=== PATIENT | male | born 1970 | race Caucasian/White ===

== ENCOUNTER 2019-07-08 08:06 | Outpatient (CLI) | payer MEDICAID, SELFPAY ==
--- NOTE | 2019-07-08 08:11 | ECG_ITS ---
NAME OF STUDY: LEXISCAN SESTAMIBI STRESS TEST INDICATION: Chest Pain, LEXISCAN STRESS TEST ORDERING PHYSICIAN: Khalif CLINICAL INFORMATION: Chest pain INTERPRETATION: 1. The patient was brought to the laboratory where Lexiscan was infused over 20 seconds. The resting blood pressure was 131/91. Maximum blood pressure was 150/98. The resting heart rate was 62 beats per minute. The maximum heart rate is 78 beats per minute. 2. The baseline electrocardiogram reveals sinus rhythm and is essentially a normal tracing 3. With Lexiscan infusion, there were no ST segment changes to suggest ischemia. 4. The patient experienced no symptoms or arrhythmias during the examination. CONCLUSION: 1. Unremarkable Lexiscan infusion. 2. Nuclear imaging to follow. Electronically Signed On 07-08-2019 10:47:58 HOME CARE RN by Suraj Pike M.D. [email or web address]
--- NOTE | 2019-07-08 08:12 | NMCV_ITS ---
NM MIBI/MIBI Stress/Rest [id number] Yosef Holland Age: 49 Gender: M : 1970 Exam Date: 07/08/2019 09:07 Ordering Phys: Raffi Cuadra Technologist: HERMAN Dutta Exam Location: [facility] Indications: Chest Pain STRESS TEST Please see separate stress test report in [facility] for full findings IMAGE PROTOCOL Rest/Stress 1 Radiopharmaceutical Dose (mCi) Administration Site Administered by Rest: Tc-99m 10.1 IV HERMAN Dutta Sestamibi Stress:Tc-99m 29.7 IV HERMAN Dutta Sestamibi Rest: 08-Jul-2019 60 Discovery 630 Stress: 08-Jul-2019 60 Discovery 630 Images obtained in supine and prone position. SPECT RESULTS Technical Quality: Good Raw Data Analysis: Normal Image Corrections: No attenuation or motion correction applied Summed Stress Score: 0 Summed Rest Score: 3 Summed Difference Score: 0 PERFUSION FINDINGS SPECT images demonstrate homogeneous tracer distribution throughout the myocardium. FUNCTIONAL RESULTS (calculated via Gated SPECT) Stress Image LV EF (%): 78 Stress EDV (mL):94 TID: 0.79 Stress ESV (mL):21 Rest Image LV EF (%): 78 FUNCTIONAL FINDINGS: There is normal left ventricular systolic function. IMPRESSIONS Myocardial perfusion imaging is normal and low probability for obstructive coronary artery disease. Tereso Padilla MD (Electronically Signed) Final Date: 08 July 2019 13:15 S
[2019-07-08 08:30] VITALS: BMI 29.0
[2019-07-08] MEDS: regadenoson 0.4 Mg/5 ml Syringe IVP (09:51)
[2019-07-08 10:05] VITALS: BP 127/84; PULSE 76
== END 2019-07-08 08:07 | disposition home or self-care (01) ==
PROVIDERS: Family Provider Family Medicine; PCP Family Medicine; Visit Provider Family Medicine
DX: R07.9 Chest pain, unspecified (principal); R06.09 Other forms of dyspnea
CPT/HCPCS: 78452; 93017; A9500; J2785

== ENCOUNTER → 2022-03-05 09:51 | Outpatient (BNVA) | payer MEDICAID, SELFPAY | PROVIDERS: Family Provider Family Medicine; PCP Family Medicine; Visit Provider Nurse Practitioner | DX: I10 Essential (primary) hypertension (principal); R06.00 Dyspnea, unspecified | CPT/HCPCS: 80053; 80061; 84443; 85025 ==

== ENCOUNTER 2022-03-22 13:10 | Outpatient (CLI) | payer MEDICAID, SELFPAY ==
--- NOTE | 2022-03-22 13:45 | USCV_ITS ---
Yosef Holland Age: 52 Gender: M : 1970 Exam Date: 03/22/2022 13:41 Ordering Phys: Sonya Gastelum GYROSCOPE TECHNICIAN Technologist: Angle Gómez Exam Location: [facility] [place] Indication: dyspnea, unspecified BP: 158 / 98 HR: 55 Rhythm: Sinus Technical Quality: Fair MEASUREMENTS (Male / Female) Normal Values 2D ECHO LV Diastolic Diameter PLAX 4.1 cm 4.2 - 5.9 / 3.9 - 5.3 cm LV Systolic Diameter PLAX 2.4 cm IVS Diastolic Thickness 1.5 cm 0.6 - 1.0 / 0.6 - 0.9 cm IVS Systolic Thickness 1.6 cm LVPW Diastolic Thickness 0.7 cm 0.6 - 1.0 / 0.6 - 0.9 cm LVPW Systolic Thickness 1.9 cm LVOT Diameter 2.0 cm LV Ejection Fraction 2D Teich 73.5 % LV Ejection Fraction MOD 2C 67.2 % LV Ejection Fraction 2C AL 68.5 % LA Diameter 1.9 cm LA Width 1.7 cm LA Height 3.9 cm RA Width 3.0 cm RA Height 4.6 cm Aorta at Sinotubular Diameter 2.4 cm IVC Diameter 1.3 cm M-MODE MV E Point Septal Separation 0.6 cm DOPPLER AV Peak Velocity 158.0 cm/s LVOT Peak Velocity 131.0 cm/s AV Area Cont Eq vti 2.7 cm squared AV Area Cont Eq pk 2.6 cm squared MV Peak Velocity 78.0 cm/s MV Area PHT 2.5 cm squared Mitral E to A Ratio 1.0 MV E' Velocity 39.5 cm/s Mitral E to MV E' Ratio 5.6 Mitral E to LV E' Lateral Ratio 5.2 Mitral E to LV E' Septal Ratio 6.0 TR Peak Velocity 92.0 cm/s TR Peak Gradient 3.4 mmHg Right Atrial Pressure 3.0 mmHg Pulmonary Artery Systolic Pressu 6.4 mmHg PV Peak Velocity 103.0 cm/s RV Acceleration Time 0.1 s RV Ejection Time 0.3 s RV AcT/ET 0.5 FINDINGS Left Ventricle Normal left ventricular size and systolic function, EF 71 %. No regional wall motion abnormalities. Right Ventricle The right ventricle is normal in size and function. Right Atrium The right atrium is normal in size. Left Atrium The left atrium is normal in size. Mitral Valve No gross abnormalities noted Aortic Valve No gross abnormalities noted Tricuspid Valve Trace tricuspid valve regurgitation. Estimated pulmonary artery peak systolic pressure within normal limits Pulmonic Valve No gross abnormalities noted Pericardium No pericardial effusion. Aorta Normal aortic annulus size. IVC Normal inferior vena cava. CONCLUSIONS Normal left ventricular size and systolic function, EF 71 %. No regional wall motion abnormalities. Trace tricuspid valve regurgitation. Estimated pulmonary artery peak systolic pressure within normal limits. No significant valve abnormalities. Normal cardiac chamber sizes. There is no pericardial effusion. There are no intracardiac masses. No similar previous studies are available for comparison Dr Syed Jay MD [facility] (Electronically Signed) Final Date: 23 March 2022 15:13 S
== END 2022-03-22 13:11 | disposition home or self-care (01) ==
LOC: RAD 13:10
PROVIDERS: Visit Provider Nurse Practitioner
DX: R06.00 Dyspnea, unspecified (principal); I07.1 Rheumatic tricuspid insufficiency
CPT/HCPCS: 93306

== ENCOUNTER → 2023-11-13 09:20 | Outpatient (BNVA) | payer MEDICAID, SELFPAY | PROVIDERS: PCP Nurse Practitioner Family; Referring Provider Nurse Practitioner Family; Visit Provider Physician Assistant | DX: M17.9 Osteoarthritis of knee, unspecified (principal) | CPT/HCPCS: 73560; 73565; 99203 ==

== ENCOUNTER 2023-11-17 13:17 | Outpatient (CLI) | payer MEDICAID, SELFPAY ==
[2023-11-17] MEDS: iohexol 350 mg/mL 100 mL Btl PO (13:49)
--- NOTE | 2023-11-17 14:30 | CT_ITS ---
WS: [id number] CT ABDOMEN AND PELVIS WITH AND WITHOUT CONTRAST HISTORY: R10.9 - Unspecified abdominal pain TECHNIQUE: Unenhanced 5 mm axial imaging first performed through the abdomen. Post contrast imaging t hrough the abdomen and pelvis. Oral contrast has been provided. Sagittal and coronal reformats are s ubmitted. All CT scans at [facility] use at least one of these dose optimization techniques: automated exposure control; mA and/or kV adjustment per patient size (includes targeted exams where d ose is matched to clinical indication); or iterative reconstruction. CONTRAST: Omnipaque 350; 95 mL IV. DLP: 1019.21 mGy.cm COMPARISON: None available. Lung bases are clear. Normal size heart. Small amount of oral contrast in the distal esophagus. Sharda l liver. Normal portal vein. Gallbladder is slightly contracted without adjacent inflammation. Normal spleen. Normal pancreas. No pancreatic duct dilatation. No adjacent inflammation. No adrenal mass. N o renal obstruction. No calcifications are identified. There are a few very tiny areas of decreased a ttenuation in the RIGHT kidney which are too small to characterize. Mild atherosclerosis aorta. Stomach is normally distended with oral contrast. No outlet obstruction. No small bowel dilatation. A ppendix is normal. Mild constipation. Mild diverticular disease. No acute diverticulitis. No free fluid or adenopathy. Negative urinary bladder. No destructive bone lesions. CT/CT abdomen pelvis wo/w [id number] IMPRESSION: 1. No renal obstruction or calcification. 2. Minimal diverticular disease without acute diverticulitis. 3. No adenopathy or ascites. 4. No GI tract obstruction. 5. No acute abdominal or pelvic abnormalities.
[2023-11-17] MEDS: iohexol 300 mg/mL 100 mL Btl IV (14:46)
== END 2023-11-17 13:18 | disposition home or self-care (01) ==
LOC: RAD 13:17
PROVIDERS: PCP Nurse Practitioner Family; Visit Provider Nurse Practitioner Family
DX: K57.90 Diverticulosis of intestine, part unspecified, without perforation or abscess without bleeding (principal); R10.9 Unspecified abdominal pain
CPT/HCPCS: 74178; Q9967

== ENCOUNTER → 2024-04-01 10:47 | Outpatient (BNVA) | payer MEDICAID, SELFPAY | PROVIDERS: PCP Nurse Practitioner Family; Visit Provider Physician Assistant | DX: M17.0 Bilateral primary osteoarthritis of knee | CPT/HCPCS: 20610; 99213; J3301 ==

== ENCOUNTER → 2024-04-07 15:37 | Outpatient (BNVA) | payer MEDICAID, SELFPAY | PROVIDERS: PCP Nurse Practitioner Family; Visit Provider Podiatrist Foot & Ankle Surgery | DX: M25.572 Pain in left ankle and joints of left foot (principal); M95.8 Other specified acquired deformities of musculoskeletal system | CPT/HCPCS: 73610; 99203 ==

== ENCOUNTER 2024-04-14 10:03 | Outpatient (CLI) | payer MEDICAID, SELFPAY ==
--- NOTE | 2024-04-14 10:15 | MRR_ITS ---
PROCEDURE INFORMATION: Exam: MR Left Lower Extremity Joint Without Contrast; Ankle Exam date and time: 04/14/2024 10:18 AM Age: 54 years old Clinical indication: Patient HX: Chronic left ankle pain with HX of FX 2011; Additional info: Osteochondral defect of ankle TECHNIQUE: Imaging protocol: Magnetic resonance imaging of the left lower extremity without contrast. Exam focused on the ankle. COMPARISON: CR XR ankle LT min 3V* [id number] 04/07/2024 3:44 PM FINDINGS: Bones/joints: No acute fracture is seen. No bone contusion is seen. No osteochondral defect is identified. Small ankle and subtalar joint effusions. Small calcaneal spur is present. LIGAMENTS: Distal tibiofibular syndesmosis: There is an old healed fracture of the distal fibula above the level syndesmosis. Anterior talofibular ligament: Unremarkable. No tear. Posterior talofibular ligament: Unremarkable. No tear. Calcaneofibular ligament: Unremarkable. No tear. Deltoid ligament complex: Unremarkable. No tear. TENDONS: Flexor tendons of foot: Unremarkable as visualized. Tibialis posterior tendon: Unremarkable as visualized. Peroneal tendons: Unremarkable as visualized. Extensor tendons of foot: Unremarkable as visualized. Tibialis anterior tendon: Unremarkable as visualized. Achilles tendon: There is minimal edema at the Achilles myotendinous junction. Correlate clinical information regarding minimal strain or partial tear. Tarsal canal (Sinus tarsi): Unremarkable. Normal signal of the fat. Tarsal tunnel: Unremarkable. Soft tissues: No mass. Plantar fascia: Plantar fascia is unremarkable. MR/MR ankle LT wo con* [id number] IMPRESSION: 1. No acute fracture or dislocation. 2. Small ankle and subtalar joint effusions. 3. Minimal edema at the Achilles myotendinous junction. Correlate clinical information regarding minimal strain or partial tear.
== END 2024-04-14 10:04 | disposition home or self-care (01) ==
LOC: RAD 10:04
PROVIDERS: PCP Nurse Practitioner Family; Visit Provider Podiatrist Foot & Ankle Surgery
DX: M95.8 Other specified acquired deformities of musculoskeletal system (principal)
CPT/HCPCS: 73721

== ENCOUNTER → 2024-06-01 08:55 | Outpatient (BNVA) | payer MEDICAID, SELFPAY | PROVIDERS: PCP Nurse Practitioner Family; Visit Provider Nurse Practitioner Family | DX: Z13.6 Encounter for screening for cardiovascular disorders (principal); E55.9 Vitamin D deficiency, unspecified; I10 Essential (primary) hypertension; Z79.899 Other long term (current) drug therapy | CPT/HCPCS: 80053; 80061; 81003; 82306; 83036; 84443; 85025; G0103 ==

== ENCOUNTER → 2024-07-06 14:43 | Outpatient (BNVA) | payer MEDICAID, SELFPAY | PROVIDERS: PCP Nurse Practitioner Family; Visit Provider Physician Assistant | DX: M17.0 Bilateral primary osteoarthritis of knee (principal) | CPT/HCPCS: 20610; 99213; J3301 ==

== ENCOUNTER → 2024-07-14 07:57 | Outpatient (BNVA) | payer MEDICAID, SELFPAY | PROVIDERS: PCP Nurse Practitioner Family; Visit Provider Podiatrist Foot & Ankle Surgery | DX: M95.8 Other specified acquired deformities of musculoskeletal system (principal) | CPT/HCPCS: 99213 ==

== ENCOUNTER → 2024-08-02 11:31 | Outpatient (BNVA) | payer MEDICAID, SELFPAY | PROVIDERS: PCP Nurse Practitioner Family; Visit Provider Family Medicine | DX: Z01.818 Encounter for other preprocedural examination (principal) | CPT/HCPCS: 80053; 81000; 83036; 85025 ==

== ENCOUNTER → 2024-10-06 13:05 | Outpatient (BNVA) | payer MEDICAID, SELFPAY | PROVIDERS: PCP Nurse Practitioner Family; Visit Provider Physician Assistant | DX: M17.0 Bilateral primary osteoarthritis of knee (principal) | CPT/HCPCS: 20610; 99213; J3301; J9999 ==

== ENCOUNTER → 2024-11-24 11:22 | Outpatient (BNVA) | payer MEDICAID, SELFPAY | PROVIDERS: PCP Nurse Practitioner Family; Visit Provider Podiatrist Foot & Ankle Surgery | DX: Z01.818 Encounter for other preprocedural examination (principal); M95.8 Other specified acquired deformities of musculoskeletal system | CPT/HCPCS: 99214 ==

== ENCOUNTER → 2024-12-01 13:19 | Outpatient (BNVA) | payer MEDICAID, SELFPAY | PROVIDERS: PCP Nurse Practitioner Family; Visit Provider Physician Assistant | DX: M17.0 Bilateral primary osteoarthritis of knee (principal) | CPT/HCPCS: 99213 ==

== ENCOUNTER → 2024-12-07 09:35 | Outpatient (BNVA) | payer MEDICAID, SELFPAY | PROVIDERS: PCP Nurse Practitioner Family; Visit Provider Family Medicine | DX: Z01.818 Encounter for other preprocedural examination (principal) | CPT/HCPCS: 80048; 81000; 85025 ==

== ENCOUNTER 2024-12-14 09:21 | Outpatient (CLI) | payer MEDICAID, SELFPAY ==
--- NOTE | 2024-12-14 09:30 | MR_ITS ---
WS: [id number] MRI LEFT KNEE HISTORY: meniscus tear of left knee COMPARISON: Prior radiograph 11/13/2023 Anterior cruciate ligament: Intact. Posterior cruciate ligament: Intact. Medial collateral ligament: Intact. Posterior lateral corner structures: Intact. Medial menisci: Intact. Normal signal, size and shape. Lateral meniscus: Intact. Normal signal, size and shape. Extensor mechanism: Distal quadriceps tendon and patellar tendons are intact. Fluid and soft tissue: Very small suprapatellar joint effusion. No Frank's cyst. Osseous and articular structures: Patellofemoral compartment: Mild narrowing of the patellofemoral joint space. There are very small subchondral cystic lesions in the medial patellar facet. Short segment full-thickness cartilage defect of the lateral patellar facet cartilage. No marrow edema. Medial compartment: Mild narrowing of the medial compartment. Very mild thinning and fissuring of the cartilage. No full-thickness cartilage defect. There is subchondral marrow edema in the anterior medial tibial plateau measuring 2.1 x 1.1 cm. Associated 0.7 cm osteochondral lesion along the anterior medial tibial plateau. Lateral compartment: Minimal narrowing of the lateral compartment. No subchondral edema. No significant loss of cartilage. MR/MR knee LT wo con* [id number] IMPRESSION: 1. No meniscal tear. 2. Subchondral edema noted along the medial anterior tibial plateau. There is an associated osteochondral lesion measuring 0.7 cm transversely with subchondr al edema surrounding the osteochondral lesion. 3. No ACL tear. 4. Mild narrowing of the patellofemoral joint space. Minimal subchondral cysti c change along the medial patellar facet and a short segment full-thickness car tilage defect along the lateral patellar facet.
== END 2024-12-14 09:22 | disposition home or self-care (01) ==
LOC: RAD 09:23
PROVIDERS: PCP Nurse Practitioner Family; Visit Provider Physician Assistant
DX: M17.0 Bilateral primary osteoarthritis of knee (principal); S83.249A Other tear of medial meniscus, current injury, unspecified knee, initial encounter
CPT/HCPCS: 73721

== ENCOUNTER 2024-12-27 05:29 | Day surgery (SDC) | payer MEDICAID, SELFPAY ==
[2024-12-27] VITALS (8 sets, daily range): BP systolic 103–140; BP diastolic 70–92; PULSE 49–61; RESP 9–20; TEMP 36.3–37.2; O2SAT 98–100; BMI 26.4
--- NOTE | 2024-12-27 05:51 | P.ANESASSM_ITS ---
Pre-Anesthetic Assessment Height/Weight: Height 6 ft 1 in Preop Diagnosis: Ankle pain Operation Date: 12/27/24 07:00 Proposed Procedures p LEFT Ankle Diagnostic Arthroplasty(Left) - Yosef Cowan DPM Was Beta Ghanshyam taken within 24 hours: N/A Was Clonidine taken within 24 hours: N/A Social Tobacco and No alcohol Exam alert and oriented x 3 Airway Submandibular: within normal limits Mallampati: Class III Comments: Comments: Very poor dentition, multiple missing teeth. Denies any loose Anesthetic Plan ASA status: 3 Anesthesia: General and Regional (specify below) Other: No prior issues with anesthesia NPO since yesterday evening History of hypertension on amlodipine and telmisartan?HCTZ GERD, diet controlled. No symptoms currently Recent labs 12/07/2024 reviewed and acceptable for procedure Prior echo 2021 showing EF of 71% Plan for general anesthesia with PNB Medications/Allergies Home Medications ?Medication ?Instructions ?Recorded ?Confirmed ?Last Taken ?Type aspirin 325 mg tablet 325 mg PO BID 03/05/2212/2712/22/24 History meloxicam 15 mg tablet 15 mg PO DAILY #14 tabs 10/2912/27/24 Unknown Rx telmisartan 40 1 tab PO DAILY #90 tabs /0 12/2212/27/24 12/23/24 Rx mg-hydrochlorothiazide 12.5 mg tablet amlodipine 10 mg tablet 10 mg PO DAILY #30 tabs 11/2812/27/24 12/27/24 Rx Allergies Allergy/AdvReac Type Severity Reaction Status Date / Time codeine Allergy tongue Verified 12/07/24 08:39 swelling Penicillins Allergy ALGY-Rash Verified 12/07/24 08:39 [facility] Anesthesia Medical History Dental infection Encounter for screening for cardiovascular disorders Medication management Vitamin D deficiency Thumb injury Tendinopathy of rotator cuff Hyperlipidemia Schizoaffective disorder, bipolar type Generalized anxiety disorder Chronic pain syndrome Osteoarthritis of knees, 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
[2024-12-27] MEDS: CELEcoxib 200 mg Capsule 400 MG PO (06:30)
[2024-12-27] MEDS: gabapentin 300 mg Capsule PO (06:30)
--- NOTE | 2024-12-27 06:43 | W.PM.OPSUD ---
Surgery/Procedure H&P Update DATE OF PROCEDURE: December 27, 2024 DATE H&P PERFORMED: 12/07/24 H&P UPDATE INFORMATION: I have reviewed H&P completed within last 30 days, I have examined patient prior to procedure, No changes to prior documentation, H&P is in [facility] EMR on date indicated and Risks and benefits of the procedure reviewed PREOP DIAGNOSIS: Ankle pain PLANNED PROCEDURE: Operation Date: 12/27/24 07:00 Proposed Procedures p LEFT Ankle Diagnostic Arthroplasty(Left) - Yosef Cowan DPM
[2024-12-27] MEDS: sodium chloride 0.9% 1,000 ML 30 ML IV (06:45)
--- NOTE | 2024-12-27 07:01 | ANES.PROC ---
Anesthesia Procedures Procedure/Date: 12/27/24 Nerve Block ^: Nerve Block 1: Main Anesthesia: other (100 mcg fentanyl and 2 mg Versed) Time Out Performed: Yes Consent: requested by attending/covering physician and from patient Nerve block location: popliteal Anesthesia monitors applied: pulse oximetry, EKG, BP cuff and oxygen Nerve block position: supine Anesthetic Used: ropivicaine 0.5% Amount of anesthesia used (mL): 25 Ultrasound used to: recognize landmarks Nerve Stimulator Used?: Yes Interscalene/Femoral BLK: other needle (pjunk 4inch) Injection: neg aspiration of heme Patient Tolerated Procedure: well Complications: none Additional Comments: decadron 4mg added to block Nerve Block 2: Main Anesthesia: other Time Out Performed: Yes Consent: requested by attending/covering physician and from patient Nerve block location: adductor canal Anesthesia monitors applied: pulse oximetry, EKG, BP cuff and oxygen Nerve block position: supine Anesthetic Used: ropivicaine 0.5% Amount of anesthesia used (mL): 15 Ultrasound used to: recognize landmarks Nerve Stimulator Used?: Yes Interscalene/Femoral BLK: other needle (pjunk 4inch) Injection: neg aspiration of heme Patient Tolerated Procedure: well Complications: none
[2024-12-27] MEDS: clindamycin 600 MG/50 ML PREMIX 100 MG IV (07:02)
--- NOTE | 2024-12-27 07:45 | P.OP_ITS ---
Operative Report Date of procedure: December 27, 2024 Surgeon: Yosef Cowan DPM Procedure: Date of procedure: 12/27/2024 Pre-op diagnosis: Left ankle osteochondral defect Post-op diagnosis: Left ankle joint synovitis Post-op findings: No osteochondral defect visualized. Ankle joint mild to moderate synovitis Procedure done: Left ankle arthroscopy CPT 98935 Implants: None Specimens removed: None Surgeon: Dr. Yosef Cowan DPM [employer] Property Manager: Hesham Estimated blood loss: 2 cc Tourniquet time: 17 minutes Complications: None Patient is a 54-year-old male that has a history of left ankle pain. The patient has had the aforementioned chief complaint for some time. Conservative treatment measures have been attempted and the patient has opted for surgical intervention at this time. A lengthy discussion regarding the procedure, including risks and complications has been had with the patient and is noted in the recent clinic note. Written and verbal consent have been obtained. All patient questions have been answered to the patient?s satisfaction. No written or verbal guarantees have been given or implied. The patient has been NPO since midnight. The history has been reviewed and the history and physical is current. The signed consent was confirmed and placed in the patient chart. Patient imaging has been reviewed and is consistent with the diagnosis. Under mild sedation, the patient was brought into the operating room and placed on the table in the supine position. IV antibiotics were given by the anesthesia team as preoperative surgical prophylaxis. General sedation was then performed by the anesthesiateam. A pneumatic tourniquet was then placed about the left thigh. Patient received a popliteal block by the anesthesia department. The operative extremity was then prepped and draped in the usual fashion. The extremity was then elevated and exsanguinated before the tourniquet was inflated to 325 mmHg. After inflation, the following procedure was then performed. Attention was directed to the an 18-gauge was inserted into the anteromedial portion of the ankle joint. The joint was then insufflated with 10 cc of sterile saline. #11 blade was used to make a stab incision at the anteromedial portion of the ankle joint. Trocar and cannula were then inserted into the stab incision into the ankle joint. Camera was inserted into the cannula. Ankle joint underwent inspection. Mild to moderate amount of synovitis was visualized. No osteochondral defect was noted. Lateral ankle ligaments were intact. Anterolateral portal was established. 2.0 Arthrex shaver was inserted into the anterolateral portal. Synovitis was removed with a shaver. Ankle joint was again inspected and put through range of motion. No osteochondral defect or abnormality noted. Shaver and camera were removed from the ankle joint. Incision sites were then closed with 4-0 nylon in simple interrupted fashion. Tourniquet was let down and good hyperemic response was noted to all digits of the left foot. Incisions dressed with Xeroform, 4 x 4 gauze, Kerlix, Marcel bandage. The patient tolerated the procedure and anesthesia well and without complication. The patient was transported from the operating room to the recovery room with vital signs stable and vascular status intact to all digits of the left foot. The patient was given both written and verbal instructions to remain nonweightbearing to the operative extremity, to keep dressings/splint clean, dry and intact and to take pain medication as directed. The patient will follow-up in the outpatient setting at their scheduled appointment. The patient was discharged with my personal number and was instructed to call if any questions or issues should arise. They were discharged home once anesthesia criteria was met.
--- NOTE | 2024-12-27 09:05 | ANE.PACU2 ---
Inpatient post-anesthesia follow up: Airway intact: Yes Vital signs: Temperature 97.4 F Pulse Rate 50 Respiratory Rate 16 Blood Pressure 119/76 Pulse Oximetry 98 Oxygen Delivery Me thod Room Air Oxygen Flow Rate 8 Fraction of Inspir ed Oxygen Hydration adequate: Yes Nausea and vomiting: No Pain level: 2 Mental status: Baseline
== END 2024-12-27 09:05 | disposition home or self-care (01) ==
PROVIDERS: PCP Nurse Practitioner Family; Visit Provider Podiatrist Foot & Ankle Surgery
PROC: (CPT 27700; principal; 2024-12-27 07:00)
DX: M21.962 Unspecified acquired deformity of left lower leg (principal); M65.972 Unspecified synovitis and tenosynovitis, left ankle and foot; K21.9 Gastro-esophageal reflux disease without esophagitis; Z79.82 Long term (current) use of aspirin; E78.5 Hyperlipidemia, unspecified; F41.9 Anxiety disorder, unspecified; I12.9 Hypertensive chronic kidney disease with stage 1 through stage 4 chronic kidney disease, or unspecified chronic kidney disease; N18.30 Chronic kidney disease, stage 3 unspecified; F17.200 Nicotine dependence, unspecified, uncomplicated
CPT/HCPCS: 29894; J0131; J2704; J3010; J3490; J7030; J9999

== ENCOUNTER → 2025-01-10 13:22 | Outpatient (BNVA) | payer MEDICAID, SELFPAY | PROVIDERS: PCP Nurse Practitioner Family; Visit Provider Podiatrist Foot & Ankle Surgery | DX: Z98.890 Other specified postprocedural states (principal) | CPT/HCPCS: 99024 ==

== ENCOUNTER → 2025-01-24 12:57 | Outpatient (BNVA) | payer MEDICAID, SELFPAY | PROVIDERS: PCP Nurse Practitioner Family; Visit Provider Podiatrist Foot & Ankle Surgery | DX: Z98.890 Other specified postprocedural states (principal) | CPT/HCPCS: 99024 ==

== ENCOUNTER → 2025-02-08 08:38 | Outpatient (BNVA) | payer MEDICAID, SELFPAY | PROVIDERS: PCP Nurse Practitioner Family; Visit Provider Student in an Organized Health Care Education/Training Program | DX: M95.8 Other specified acquired deformities of musculoskeletal system (principal); Z09 Encounter for follow-up examination after completed treatment for conditions other than malignant neoplasm | CPT/HCPCS: 99214 ==

== ENCOUNTER → 2025-02-18 08:47 | Outpatient (BNVA) | payer MEDICAID, SELFPAY | PROVIDERS: PCP Nurse Practitioner Family; Visit Provider Student in an Organized Health Care Education/Training Program | DX: K92.1 Melena (principal) | CPT/HCPCS: 99204 ==

== ENCOUNTER 2025-03-17 10:33 | Day surgery (SDC) | payer MEDICAID, SELFPAY ==
[2025-03-17] VITALS (10 sets, daily range): BP systolic 103–142; BP diastolic 66–91; PULSE 51–64; RESP 13–24; TEMP 36.1–36.3; O2SAT 97–100; BMI 26.4
[2025-03-17] MEDS: acetaminophen 1,000 MG/100 ML PIGGYBACK 400 MG IV (11:15)
[2025-03-17 11:18] LABS: Hematocrit 39.1 % (37-53); Hemoglobin 13.30 g/dL (11.27-16.99); Mean Corpuscular HGB Conc 34.0 g/dL (30-55); Mean Corpuscular Hemoglobin 30.2 pg (27-33); Mean Corpuscular Volume 88.9 fl (82-101); Nucleated Red Blood Cells % 0 %; Platelet Count 263 10^3/cmm (157-399); Red Blood Count 4.40 10^6/uL (3.85-5.65); White Blood Count 9.84 10^3/uL (3.29-11.43)
[2025-03-17 11:34] LABS: Alanine Aminotransferase 13 U/L (0-41); Albumin Level 4.6 g/dL (3.5-5.2); Alkaline Phosphatase 74 U/L (40-130); Anion Gap 16.6 (5-19); Aspartate Amino Transferase 20 U/L (0-40); Blood Urea Nitrogen 24 mg/dL (6-20); Calcium 9.2 mg/dL (8.5-10.5); Carbon Dioxide 23 mmol/L (22-29); Chloride 105 mmol/L (98-107); Creatinine Clr Calc Pharmacy 99.4349; Globulin 3.0 g/dL (1.3-4.6); Glucose 98 mg/dL (65-115); Osmolality Calculated 296 mOsm/kg (285-295); Potassium 3.6 mmol/L (3.5-5.1); Sodium 141 mmol/L (136-145); Total Protein 7.6 g/dL (6.6-8.7)
--- NOTE | 2025-03-17 12:35 | ANES.PREANE2 ---
Pre-Anesthetic Assessment Height/Weight: Height 1.85 m Weight 90.718 kg Temp Pulse Resp BP Pulse Ox O2 Del Method 97.3 F L 59 L 18 124/91 98 Room Air 03/17/25 10:54 03/17/25 10:54 03/17/25 10:54 03/17/25 10:54 03/17/25 10:54 03/17/25 10:56 Operation Date: 03/17/25 13:15 Proposed Procedures p knee diagnostic and surgical arthroscopy with osteochondral defect microfracturing(Left) - Dakota Carrasco DO Familial anesthetic complications: None Was Beta Ghanshyam taken within 24 hours: N/A Was Clonidine taken within 24 hours: N/A Last intake: Intake Last Liquid Date 03/16/25 Last Liquid Time 23:00 Last Solid Date 03/16/25 Last Solid Time 23:00 Social Tobacco and No alcohol Exam alert, oriented x 3, clear to auscultation bilaterally and regular rate & rhythm Airway Mallampati: Class III Dentition: other (poor dentition there's not much left ) CV/HEM Hypertension GI Gastroesophageal Reflux Disease Anesthetic Plan ASA status: 2 Anesthesia: General Risk of > 500 ml blood loss (7ml/kg in children): No Medications/Allergies Home Medications ?Medication ?Instructions ?Recorded ?Confirmed ?Last Taken ?Type telmisartan 40 1 tab PO DAILY #90 tabs 12/03/24 03/16/25 03/16/25 Rx mg-hydrochlorothiazide 12.5 mg tablet alprazolam 0.25 mg tablet 0.25 mg PO BID PRN anxiety 15 days 01/13/25 03/17/25 03/16/25 Rx #30 tabs amlodipine 10 mg tablet 10 mg PO DAILY #30 tabs 01/21/25 03/16/25 03/16/25 Rx Allergies Allergy/AdvReac Type Severity Reaction Status Date / Time codeine Allergy tongue Verified 03/17/25 10:46 swelling Penicillins Allergy ALGY-Rash Verified 03/17/25 10:46 Current Medications Generic Name Dose Route Start Last Admin Trade Name Freq PRN Reason Stop Dose Admin Sodium Chloride 1,000 mls @ 30 mls/hr 03/17/25 10:45 03/17/25 11:13 Sodium Chloride 0.9% IV 03/18/25 10:44 30 mls/hr .Q24H VENESSA Administration PFSH Anesthesia Medical History (Updated 02/18/25 @ 09:22 by Rene Pemberton MD) Foreign body finger Skin lesion of chest wall Dental infection Encounter for screening for cardiovascular disorders Medication management Vitamin D deficiency Thumb injury Tendinopathy of rotator cuff Hyperlipidemia Schizoaffective disorder, bipolar type Generalized anxiety disorder Chronic pain syndrome Osteoarthritis of knees, bilateral 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 Smoker Family history of cardiac disorder GERD (gastroesophageal reflux disease) HTN (hypertension) Stage III chronic kidney disease Family History Other CAD (coronary artery disease) Social History Smoking and tobacco/nicotine status: current every day tobacco/nicotine user cigarettes Packs smoked per day: 1 (PPD) Quit status (tobacco/nicotine): not considering quitting Second hand smoke exposure: No Data Anesthesia 03/17/25 11:08 03/17/25 11:08 Short CBC 03/17/25 Range/Units 11:08 WBC 9.84 (3.29-11.43) 10^3/uL Hgb 13.30 (11.27-16.99) g/dL Hct 39.1 (37-53) % MCV 88.9 (82-101) fl Plt Count 263 (157-399) 10^3/cmm Neut % (Auto) 51.8 % Neut # (Auto) 5.09 (1.8-7.7) 10^3/uL BMP 03/17/25 11:08 Sodium 141 Potassium 3.6 Chloride 105 Carbon Dioxide 23 BUN 24 H Creatinine 1.0 Glucose 98 Calcium 9.2 Liver Function 03/17/25 Range/Units 11:08 Total Bilirubin 0.6 (0.15-1.2) mg/dL AST 20 (0-40) U/L ALT 13 (0-41) U/L Alkaline Phosphatase 74 (40-130) U/L Albumin 4.6 (3.5-5.2) g/dL Cardiac Studies: Echocardiogram 03/22/22 Sestamibi Stress Test (Cardiology) 07/08/19
--- NOTE | 2025-03-17 13:53 | P.HP_ITS ---
Same Day Surgery H&P Indication for Procedure/HPI DATE OF PROCEDURE: March 17, 2025 CHIEF COMPLAINT/INDICATIONFOR SURGICAL PROCEDURE: Left knee osteochondral defect PREOP DIAGNOSIS: Left knee osteochondral defect PLANNED PROCEDURE: Operation Date: 03/17/25 13:15 Proposed Procedures p knee diagnostic and surgical arthroscopy with osteochondral defect microfracturing(Left) - Dakota Carrasco, DO Medications/Allergies* Allergies/Adverse Reactions Allergy/AdvReac Type Severity Reaction Status Date / Time codeine Allergy tongue Verified 03/17/25 10:46 swelling Penicillins Allergy ALGY-Rash Verified 03/17/25 10:46 Current Medications: Generic Name Dose Route Start Last Admin Trade Name Freq PRN Reason Stop Dose Admin Sodium Chloride 1,000 mls @ 30 mls/hr 03/17/25 10:45 03/17/25 11:13 Sodium Chloride 0.9% IV 03/18/25 10:44 30 mls/hr .Q24H VENESSA Administration Pertinent History/Comorbid Conditions* Medical History (Updated 02/18/25 @ 09:22 by Rene Pemberton MD) Foreign body finger Skin lesion of chest wall Dental infection Encounter for screening for cardiovascular disorders Medication management Vitamin D deficiency Thumb injury Tendinopathy of rotator cuff Hyperlipidemia Schizoaffective disorder, bipolar type Generalized anxiety disorder Chronic pain syndrome Osteoarthritis of knees, bilateral detention prescription opiate use Smoker Family history of cardiac disorder GERD (gastroesophageal reflux disease) HTN (hypertension) Stage III chronic kidney disease Family History (Updated 07/08/19 @ 08:42 by Jessika Driver RN) CAD (coronary artery disease) Social History Smoking and tobacco/nicotine status: current every day tobacco/nicotine user cigarettes Packs smoked per day: 1 (PPD) Quit status (tobacco/nicotine): not considering quitting Second hand smoke exposure: No Pertinent Exam Findings alert, oriented x 3, operative site marked and procedure specific exam findings Please refer to detailed orthopedic examination on 02/08/2025 listed below: Left Knee exam -Patellar crepitus with range of motion -ROM 0-120 degrees -Medial and lateral joint line tenderness. Tenderness over patella as well. -Negative Abiel's -Negative valgus, negative varus -Positive Lisa's test -Focal TTP over medial tibial plateau anterior over location of lesion -Patellar crepitus -TTP over Retropatellar space -Smooth Hip ROM Recommendations Risks and benefits of procedure reviewed and Patient/family agree to proceed Surgery/Procedure today Other Plans: Plan to proceed to the OR today for left knee diagnostic and surgical arthroscopy with osteochondral defect microfracturing. Patient understands ins outs procedure risk benefits complication alternatives surgical nonsurgical treatment options. Understanding risk of surgery patient like to proceed with surgical invention. All questions answered at this time Coding Level of Care Code Acute Code for Antwon Fwbradford
[2025-03-17] MEDS: lidocaine-epi 1% 20 mL INJ 40 ML INJECTION (14:57)
--- NOTE | 2025-03-17 15:51 | P.BOP_ITS ---
Date of Procedure: [March 17, 2025] Surgeon: [Dr. 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
--- NOTE | 2025-03-17 15:57 | PM.PACU ---
PACU note Narrative: Patient is a 55-year-old male who just underwent a left knee diagnostic and surgical arthroscopy. Pt transferred to PACU in stable condition. Dressing is dry. pt is awake and alert. pt can wiggle toes and plantarflex and dorsiflex foot. pt able to perform straight leg raise, Femoral nerve intact. Distal pulses are palpable toes are warm and well-perfused. Cap refill is normal and under 2 seconds. Sensation to foot is intact. Pain is controlled. Exam: awake Disposition: discharged
--- NOTE | 2025-03-17 16:55 | ANE.PACU2 ---
Inpatient post-anesthesia follow up: Airway intact: Yes Vital signs: Temperature 97.3 F Pulse Rate 51 Respiratory Rate 15 Blood Pressure 115/74 Pulse Oximetry 100 Oxygen Delivery Me thod Room Air Oxygen Flow Rate Fraction of Inspir ed Oxygen Hydration adequate: Yes Nausea and vomiting: No Pain level: 1 Mental status: Baseline
--- NOTE | 2025-03-17 17:50 | P.OP_ITS ---
Operative Report Date of procedure: March 17, 2025 Surgeon: Dakota Carrasco DO Furniture Painter: Kevin Carrasco PA-C: PA was necessary for assistance in this case with leg positioning to execute the procedure, assistance with instrumentation, , assist with wound closure and dressing application. 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 with osteochondral defect, extensive synovitis Procedure done: Left?knee?diagnostic and surgical arthroscopy osteochondral defect microfracturing Left?knee?diagnostic and surgical arthroscopy with extensive synovectomy of the medial lateral and patellofemoral compartments Left?knee?diagnostic and surgical arthroscopy with medial and patellofemoral compartment chondroplasty Surgeon: Dakota Carrasco DO Estimated blood loss: 5mL Tourniquet: No tourniquet was used IV fluids: 1200 mL Complications: None Findings: See operative report narrative Condition: stable Disposition: same day Brief History: Patient is a 55-year-old male with Left?knee?pain.? Patient has failed conservative treatment who has been worked up for Left??knee?pain in the outpatient setting. MRI findings consistent with osteochondral defect. Talked in the office about treatment options patient would like to proceed with a Left?knee?diagnostic and surgical arthroscopy with osteochondral defect microfracture.? Patient understand the ins and outs of the procedure the risk benefits complication alternatives to treatment options.? Understanding risk of surgery they agree to proceed with surgical intervention.? Patient understand this may not provide patient with complete symptomatic relief of? pain as patient does have some underlying arthritis.? Understanding this and patient agree to proceed with surgical intervention all questions answered. Procedure: Patient seen and evaluated in the preoperative holding area.? Consent was reviewed and signed with patient.? Correct extremity was then marked.? Patient seen evaluated Anesthesia Department once cleared for surgery patient was taken back to the operative suite.? Patient was transported onto the OR table in supine position.? All bony prominences well-padded patient was appropriate secured to the bed.? Once appropriately anesthetized a nonsterile tourniquet was applied to the Left thigh.? The Left lower extremity was then prepped and draped in?standard orthopedic fashion.? Final timeout performed.? Patient received appr opriate preoperative antibiotics. Patient received local anesthetic of lidocaine with epinephrine into the joint as well as around the portal sites.? No tourniquet was inflated A?standard 2 portal vertical incision diagnostic and surgical arthroscopy of the Left?knee?was performed in?standard fashion.? Small stab incision made in the inferolateral portal introduced trocar and arthroscope into the suprapatellar pouch.? Suprapatellar pouch was subsequently visualized and found to have significant synovitis but no loose bodies.? Patient had noticeable significant inflamed infrapatellar fat pad and thickening hypertrophic within the patellofemoral compartment.? ?The medial gutter was free of loose bodies I then introduced the arthroscope into the medial compartment.? Within the medial compartment I then established my inferior medial working portal utilizing spinal needle outside in technique.? Once established I then visualized our articular cartilage of the medial compartment with a valgus stress.? Patient was found to have grade 2-3 chondromalacia throughout the medial compartment.? Next I inspected the meniscus.? With an arthroscopic probe was utilized to visual? all aspects of the meniscus.? Meniscus was found to be intact in its entirety. At this point in time the anterior aspect of the medial tibial plateau was identified where the osteochondral defect was appreciated this was less than a centimeter in size I subsequently utilized arthroscopic shaver to debride any loose articular edges to create a good edge of stable articular tissue then we utilized the power microfracturing pick with Arthrex as well as the Latrice picks and then fenestrated multiple holes appropriately spaced out to vent satisfactory bone marrow consistent with a satisfactory microfracturing of the defect. I then subsequently utilized arthroscopic shaver and thermal wand to perform a medial compartment chondroplasty of the medial femoral condyle as well. Once again the meniscus was intact with no evidence of tearing as well as the root was intact. This completed my work in the medial compartment . Next a introduced the arthroscope to the intercondylar notch.? PCL and ACL were intact. patient had significant thickening of the infrapatellar fat pad spanning into the medial and lateral compartments.? I then performed an extensive synovectomy with the arthroscopic shaver of the patellofemoral medial and lateral compartments as well as the intercondylar notch. Next I introduced the arthroscope into the lateral compartment the lateral compartment was found to have grade 1-2 chondromalacia.? Lateral meniscus was found to be intact.? The root was intact.? Given the grade II chondromalacia there is no unstable cartilage pieces to perform chondroplasty.? This completed my work of the lateral compartment and then performed a synovectomy of the lateral compartment.? Next of the arthroscope was placed into the lateral gutter and this was free of loose bodies.? Finally I reintroduced the arthroscope into the patellofemoral compartment.? The patellofemoral was found to have grade 2-3 chondromalacia of the patellofemoral compartment.? At this point I utilized arthroscopic shaver and thermal wand to perform a patellofemoral compartment chondroplasty to stable articular tissue. At this point I utilized arthroscopic shaver as well as thermal wand to perform extensive synovectomy of the patellofemoral compartment. This completed my work of the patellofemoral space.? I then switch my portal sites to the medial working portal.? Completed the rest of my synovectomy and the rest of my examination arthroscopy was normal. All fluid was suctioned from the joint.? ?All instruments were withdrawn.? Portal sites were closed with interrupted nylon suture.? portal sites were then covered with with Xeroform 4 x 4's ABD Curlex and Marcel wrap.? Patient was then subsequently awakened from anesthesia and taken to PACU in stable condition. Disposition: Patient taken to PACU in stable condition recovering well.? Will receive appropriate discharge structure as well as pain medication postoperatively as well as? DVT prophylaxis.we will have patient follow-up with us in the office in 2 weeks.? We will non-weightbearing to the Left lower extremity with crutches.? Patient understands and agrees with current plan.? All questions answered.
== END 2025-03-17 16:56 | disposition home or self-care (01) ==
PROVIDERS: PCP Nurse Practitioner Family; Visit Provider Student in an Organized Health Care Education/Training Program
PROC: (CPT 29870; principal; 2025-03-17 13:15)
PROC: (CPT 29876; 2025-03-17 13:15)
DX: M21.962 Unspecified acquired deformity of left lower leg (principal); M94.262 Chondromalacia, left knee; M65.962 Unspecified synovitis and tenosynovitis, left lower leg; K21.9 Gastro-esophageal reflux disease without esophagitis; E78.5 Hyperlipidemia, unspecified; I12.9 Hypertensive chronic kidney disease with stage 1 through stage 4 chronic kidney disease, or unspecified chronic kidney disease; N18.30 Chronic kidney disease, stage 3 unspecified; F17.210 Nicotine dependence, cigarettes, uncomplicated; F41.9 Anxiety disorder, unspecified; Z79.891 Long term (current) use of opiate analgesic; F31.89 Other bipolar disorder
CPT/HCPCS: 29876; 29879; 36415; 80053; 85025; J0131; J1100; J1885; J2250; J2405; J2704; J3010; J3490; J7030; J9999

== ENCOUNTER → 2025-03-30 14:02 | Outpatient (BNVA) | payer MEDICAID, SELFPAY | PROVIDERS: PCP Nurse Practitioner Family; Visit Provider Student in an Organized Health Care Education/Training Program | DX: Z98.890 Other specified postprocedural states (principal) | CPT/HCPCS: 73562; 99024 ==

== ENCOUNTER 2025-04-05 08:23 | Day surgery (SDC) | payer MEDICAID, SELFPAY ==
[2025-04-05 08:56] VITALS: BP 134/86; PULSE 55; RESP 16; TEMP 36.8; O2SAT 97; BMI 26.4
--- NOTE | 2025-04-05 09:16 | ANES.PREANE2 ---
Pre-Anesthetic Assessment Height/Weight: Height 1.85 m Weight 90.718 kg Temp Pulse Resp BP Pulse Ox O2 Del Method 98.3 F 55 L 16 134/86 97 Room Air 04/05/25 08:56 04/05/25 08:56 04/05/25 08:56 04/05/25 08:56 04/05/25 08:56 04/05/25 08:56 Preop Diagnosis: abd pain Operation Date: 04/05/25 10:00 Proposed Procedures p EGD EGD with Biopsy [id number] G0105 Z12.11 K92.1(Not Applicable) - Rene Pemberton MD s Colonoscopy(Not Applicable) - Rene Pemberton MD Was Beta Ghanshyam taken within 24 hours: N/A Was Clonidine taken within 24 hours: N/A Last intake: Intake Last Liquid Date 04/04/25 Last Liquid Time 22:00 Last Solid Date 04/04/25 Last Solid Time 03:30 Last Intake: 21:00 Social No alcohol and No tobacco Exam oriented x 3 Airway Submandibular: within normal limits Cervical ROM: within normal limits Mallampati: Class III Dentition: loose and full History/ROS No significant history except as noted Pulmonary None reported CV/HEM None reported None reported Hepatic None reported GI Gastroesophageal Reflux Disease Metabolic None reported Musc/skel None reported Neuropsych None reported Anesthetic Plan ASA status: 2 Anesthesia: Anesthesia Evaluation Risk of > 500 ml blood loss (7ml/kg in children): No Medications/Allergies Home Medications ?Medication ?Instructions ?Recorded ?Confirmed ?Last Taken ?Type telmisartan 40 1 tab PO DAILY #90 tabs 12/03/24 03/31/25 04/04/25 Rx mg-hydrochlorothiazide 12.5 mg tablet alprazolam 0.25 mg tablet 0.25 mg PO BID PRN anxiety 15 days 01/13/25 03/31/25 03/16/25 Rx #30 tabs amlodipine 10 mg tablet 10 mg PO DAILY #30 tabs 01/21/25 03/31/25 04/04/25 Rx aspirin 325 mg tablet,delayed 325 mg PO BID PRN Headache 03/31/25 03/31/25 03/29/25 History release hydrocodone 5 mg-acetaminophen 325 1 tab PO Q6H PRN Pain 03/31/25 03/31/25 Unknown History mg tablet naloxone 4 mg/actuation nasal 1 spray intranasal .Q2-3MIN PRN 03/31/25 03/31/25 Unknown History spray (Narcan) OVERDOSE omeprazole 20 mg capsule,delayed 20 mg PO BID 03/31/25 03/31/25 04/04/25 History release ondansetron 4 mg disintegrating 4 mg translingual Q8H PRN Nausea 03/31/25 03/31/25 Unknown History tablet And Vomiting Allergies Allergy/AdvReac Type Severity Reaction Status Date / Time codeine Allergy tongue Verified 03/30/25 13:51 swelling Penicillins Allergy ALGY-Rash Verified 03/30/25 13:51 Current Medications Generic Name Dose Route Start Last Admin Trade Name Freq PRN Reason Stop Dose Admin Sodium Chloride 1,000 mls @ 15 mls/hr 04/05/25 08:46 04/05/25 09:01 Sodium Chloride 0.9% IV 04/06/25 08:45 15 mls/hr .Q24H PRN Administration COLONOSCOPY FLUIDS PFSH Anesthesia Medical History Foreign body finger Skin lesion of chest wall Dental infection Encounter for screening for cardiovascular disorders Medication management Vitamin D deficiency Thumb injury Tendinopathy of rotator cuff Hyperlipidemia Schizoaffective disorder, bipolar type Generalized anxiety disorder Chronic pain syndrome Osteoarthritis of knees, bilateral 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
--- NOTE | 2025-04-05 09:45 | W.PM.OPSFHP ---
Same Day Surgery H&P Indication for Procedure/HPI DATE OF PROCEDURE: April 05, 2025 CHIEF COMPLAINT/INDICATIONFOR SURGICAL PROCEDURE: screening colonoscopy, melena PREOP DIAGNOSIS: screening colonoscopy, melena PLANNED PROCEDURE: Operation Date: 04/05/25 10:00 Proposed Procedures p EGD EGD with Biopsy [id number] G0105 Z12.11 K92.1(Not Applicable) - Rene Pemberton MD s Colonoscopy(Not Applicable) - Rene Pemberton MD Medications/Allergies* Home Medications ?Medication ?Instructions ?Recorded ?Confirmed ?Type aspirin 325 mg tablet,delayed 325 mg PO BID PRN Headache 03/31/25 03/31/25 History release hydrocodone 5 mg-acetaminophen 325 1 tab PO Q6H PRN Pain 03/31/25 03/31/25 History mg tablet naloxone 4 mg/actuation nasal 1 spray intranasal .Q2-3MIN PRN 03/31/25 03/31/25 History spray (Narcan) OVERDOSE omeprazole 20 mg capsule,delayed 20 mg PO BID 03/31/25 03/31/25 History release ondansetron 4 mg disintegrating 4 mg translingual Q8H PRN Nausea 03/31/25 03/31/25 History tablet And Vomiting Allergies/Adverse Reactions Allergy/AdvReac Type Severity Reaction Status Date / Time codeine Allergy tongue Verified 03/30/25 13:51 swelling Penicillins Allergy ALGY-Rash Verified 03/30/25 13:51 Current Medications: Generic Name Dose Route Start Last Admin Trade Name Freq PRN Reason Stop Dose Admin Sodium Chloride 1,000 mls @ 15 mls/hr 04/05/25 08:46 04/05/25 09:01 Sodium Chloride 0.9% IV 04/06/25 08:45 15 mls/hr .Q24H PRN Administration COLONOSCOPY FLUIDS Pertinent History/Comorbid Conditions* Medical History (Updated 02/18/25 @ 09:22 by Rene Pemberton MD) Foreign body finger Skin lesion of chest wall Dental infection Encounter for screening for cardiovascular disorders Medication management Vitamin D deficiency Thumb injury Tendinopathy of rotator cuff Hyperlipidemia Schizoaffective disorder, bipolar type Generalized anxiety disorder Chronic pain syndrome Osteoarthritis of knees, bilateral 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 prescription opiate use Smoker Family history of cardiac disorder GERD (gastroesophageal reflux disease) HTN (hypertension) Stage III chronic kidney disease Family History (Updated 01/09/20 @ 08:42 by Jessika Driver RN) CAD (coronary artery disease) Social History Smoking and tobacco/nicotine status: current every day tobacco/nicotine user cigarettes Packs smoked per day: 1 (PPD) Quit status (tobacco/nicotine): not considering quitting Second hand smoke exposure: No Pertinent Exam Findings alert, oriented x 3, clear to auscultation bilaterally, regular rate & rhythm and procedure specific exam findings abdomen soft, nt, nd Recommendations Risks and benefits of procedure reviewed and Patient/family agree to proceed Surgery/Procedure today Coding Level of Care Code Acute Code for Chg Fwbradford
[2025-04-05 10:15] VITALS: BP 109/59; PULSE 45; RESP 16; TEMP 35.9; O2SAT 99
[2025-04-05 10:27] VITALS: BP 108/59; PULSE 70; RESP 16; O2SAT 99
[2025-04-05 10:37] VITALS: BP 170/96; PULSE 57; RESP 16; O2SAT 96
--- NOTE | 2025-04-05 10:45 | ANE.PACU2 ---
Inpatient post-anesthesia follow up: Airway intact: Yes Vital signs: Temperature 96.7 F Pulse Rate 57 Respiratory Rate 16 Blood Pressure 170/96 Pulse Oximetry 96 Oxygen Delivery Me thod Room Air Oxygen Flow Rate Fraction of Inspir ed Oxygen Hydration adequate: Yes Nausea and vomiting: No Pain level: 1 Mental status: Baseline
== END 2025-04-05 10:45 | disposition home or self-care (01) ==
PROVIDERS: PCP Nurse Practitioner Family; Visit Provider Student in an Organized Health Care Education/Training Program
PROC: 0DJ08ZZ Inspection of Upper Intestinal Tract, Via Natural or Artificial Opening Endoscopic (ICD-10-PCS; principal; 2025-04-05 10:00)
PROC: 0DJD8ZZ Inspection of Lower Intestinal Tract, Via Natural or Artificial Opening Endoscopic (ICD-10-PCS; CPT 45378; 2025-04-05 10:00)
DX: Z12.11 Encounter for screening for malignant neoplasm of colon (principal); K92.1 Melena; K57.30 Diverticulosis of large intestine without perforation or abscess without bleeding; K29.70 Gastritis, unspecified, without bleeding; K29.80 Duodenitis without bleeding; Z79.82 Long term (current) use of aspirin; Z79.891 Long term (current) use of opiate analgesic; K21.9 Gastro-esophageal reflux disease without esophagitis; E78.5 Hyperlipidemia, unspecified; F31.89 Other bipolar disorder; F17.210 Nicotine dependence, cigarettes, uncomplicated; I12.9 Hypertensive chronic kidney disease with stage 1 through stage 4 chronic kidney disease, or unspecified chronic kidney disease; N18.30 Chronic kidney disease, stage 3 unspecified
CPT/HCPCS: 43239; 45378; 88305; J2704; J7030

== ENCOUNTER → 2025-04-13 13:55 | Outpatient (BNVA) | payer MEDICAID, SELFPAY | PROVIDERS: PCP Nurse Practitioner Family; Visit Provider Student in an Organized Health Care Education/Training Program | DX: Z98.890 Other specified postprocedural states (principal) | CPT/HCPCS: 99213 ==

== ENCOUNTER → 2025-04-28 14:36 | Outpatient (BNVA) | payer MEDICAID, SELFPAY | PROVIDERS: PCP Nurse Practitioner Family; Visit Provider Student in an Organized Health Care Education/Training Program | DX: Z09 Encounter for follow-up examination after completed treatment for conditions other than malignant neoplasm (principal) | CPT/HCPCS: 99213 ==

== ENCOUNTER → 2025-05-03 10:18 | Outpatient (BNVA) | payer MEDICAID, SELFPAY | PROVIDERS: PCP Nurse Practitioner Family; Visit Provider Student in an Organized Health Care Education/Training Program | DX: Z98.890 Other specified postprocedural states (principal); M17.12 Unilateral primary osteoarthritis, left knee | CPT/HCPCS: 20610; 99213; J3301; J9999 ==

== ENCOUNTER 2025-05-13 12:17 | Outpatient (RCR) | payer MEDICAID, SELFPAY | END 2025-05-29 23:59 | disposition home or self-care (01) | LOC: SPT 12:17 | PROVIDERS: Visit Provider Student in an Organized Health Care Education/Training Program | DX: Z98.890 Other specified postprocedural states (principal); L81.4 Other melanin hyperpigmentation; D22.5 Melanocytic nevi of trunk; L81.3 Cafe au lait spots; B07.8 Other viral warts; L53.8 Other specified erythematous conditions; R20.8 Other disturbances of skin sensation; L29.89 Other pruritus; D48.5 Neoplasm of uncertain behavior of skin | CPT/HCPCS: 11102; 17110; 97110; 97161; 99203 ==